=== PATIENT | male | born 1990 | race Caucasian/White ===

== ENCOUNTER 2016-06-24 21:29 | Emergency (ER) | payer OTHER ==
[2016-06-24] MEDS ORDERED: IBUPROFEN 800 MG TABLET ONE (22:34)
--- NOTE | 2016-06-25 07:41 | RAD ---
ANKLE-LEFT 3 VIEW History: Injury. Comparison: None. Findings: Views of the left ankle were obtained.The osseous structures appear to be intact. The mortise joint is normal. The talar dome contour appears to be within that expected. No focal soft tissue abnormalities are identified. Impression: 1. Negative views of the left ankle.
--- NOTE | 2016-06-25 07:42 | RAD ---
FOOT LEFT 3 VIEWS HISTORY: Injury. COMPARISONS: None. FINDINGS: 3 views of the left foot demonstrate normal bony mineralization. The visualized osseous structures are intact. The alignment is appropriate. The joint spaces are well-maintained. No focal soft tissue abnormalities are seen. IMPRESSION: 1. Negative views of the left foot.
== END 2016-06-24 22:56 | disposition home or self-care (01) ==
LOC: ED 21:29
DX: S93.602A Unspecified sprain of left foot, initial encounter (principal); W01.0XXA Fall on same level from slipping, tripping and stumbling without subsequent striking against object, initial encounter; Y92.009 Unspecified place in unspecified non-institutional (private) residence as the place of occurrence of the external cause; Y99.8 Other external cause status; K21.9 Gastro-esophageal reflux disease without esophagitis; Z79.899 Other long term (current) drug therapy; Z88.0 Allergy status to penicillin
CPT/HCPCS: 73610; 73630; 99283 ×2; 29515; A9270